=== PATIENT | male | born 1945 | race Caucasian/White ===

== ENCOUNTER 2024-04-04 07:52 | Outpatient (CLI) | payer OTHER, SELFPAY ==
[2024-04-04 08:13] LABS: Appearance Urine Clear (Clear); Bilirubin Urine Negative (Negative); Blood Urine Negative (Negative); Color Urine Yellow (Yellow); Glucose Urine 2+ (Negative); Ketones Urine Negative (Negative); Leukocyte Esterase Urine Negative (Negative); Nitrite Urine Negative (Negative); Protein Urine Trace (Negative); Specific Gravity Urine 1.025 (1.000-1.030); Urobilinogen Urine 0.2 (0.2-1.0); pH Urine 5.5 (5.0-8.5)
[2024-04-04 08:22] LABS: RBC Urine 0-2 (0-2); WBC Urine 0-2 (0-5)
[2024-04-04 08:31] LABS: Albumin* 4.2 g/dL (3.3-5.0); Chloride* 103 mmol/L (96-114)
[2024-04-04 08:32] LABS: Sodium* 140 mmol/L (135-149)
[2024-04-04 08:34] LABS: Anion Gap 11 mEq/L (7-15); Aspartate Amino Transferase* 21 U/L (12-35); Bilirubin Total* 0.7 mg/dL (0.1-1.5); Carbon Dioxide* 26 mmol/L (20-32); Creatinine* 0.6 mg/dL (0.5-1.5); Estimated Glomerular Filt Rate 99 ml/min
[2024-04-04 08:35] LABS: Alanine Aminotransferase* 16 U/L (4-50); Alkaline Phosphatase* 81 U/L (40-150); Blood Urea Nitrogen* 16 mg/dL (7-30); Calcium* 9.2 mg/dL (8.4-10.6); Glucose* 155 mg/dL (60-115); Total Protein* 7.4 g/dL (6.0-8.3)
== END 2024-04-04 07:53 | disposition home or self-care (01) ==
LOC: LAB 07:54
PROVIDERS: PCP Family Medicine; Visit Provider Chiropractor
DX: Z79.82 Long term (current) use of aspirin (principal); E11.9 Type 2 diabetes mellitus without complications; R80.9 Proteinuria, unspecified
CPT/HCPCS: 36415; 80053; 81001; 81003